=== PATIENT | female | born 1950 | race Two or more races ===

== ENCOUNTER 2017-12-04 13:11 | Observation (INO) | payer MEDICARE, OTHER ==
--- NOTE | 2017-12-04 15:08 | PDOC ---
History of Present Illness - History of Present Illness Initial Comments: Patient is a 67F, with PMHx of HTN, HLD, Hypothyroidism, Depression, CVA ( diagnosed in [place]), who presents to the ED for 3 days of slurred speech, tongue numbness, and worsening facial droop. Patients reports that she has not had her synthroid for the past 5 days. Denies any recent headache chest pain, sob, nausea, vomiting diarrhea, constipation, diarrhea, sore throat, or cough. 12/04/17 16:36 <Zo Huang - Last Filed: 12/04/17 16:36> - History of Present Illness Initial Comments: 12/04/17 16:11 12/04/17 16:20 <Gini Singh - Last Filed: 12/04/17 19:03> - General Chief Complaint: CVA/TIA Stated Complaint: FACIAL DROOP, SLURRED SPEECH, RX REFILL Time Seen by Provider: 12/04/17 13:47 Past History <Zo Huang - Last Filed: 12/04/17 16:36> - Past Medical History CVA: Yes (2010) COPD: No HTN: Yes - Suicide/Smoking/Psychosocial Hx Smoking History: Never smoked <Gini Singh - Last Filed: 12/04/17 19:03> - Past Medical History Allergies/Adverse Reactions: Allergies Allergy/AdvReac Type Severity Reaction Status Date / Time No Known Allergies Allergy Verified 12/04/17 13:21 Review of Systems - Review of Systems Comments:: GENERAL/CONSTITUTIONAL: No fever or chills. No weakness. HEAD, EYES, EARS, NOSE AND THROAT: No change in vision. No ear pain or discharge. No sore throat. GASTROINTESTINAL: No nausea, vomiting, diarrhea or constipation. GENITOURINARY: No dysuria, frequency, or change in urination. CARDIOVASCULAR: No chest pain or shortness of breath. RESPIRATORY: No cough, wheezing, or hemoptysis. MUSCULOSKELETAL: No joint or muscle swelling or pain. No neck or back pain. SKIN: No rash NEUROLOGIC: No headache, vertigo, loss of consciousness, +slurred speech, + facial droop, +tongue numbness. ENDOCRINE: No increased thirst. No abnormal weight change. HEMATOLOGIC/LYMPHATIC: No anemia, easy bleeding, or history of blood clots. ALLERGIC/IMMUNOLOGIC: No hives or skin allergy. <Zo Huang - Last Filed: 12/04/17 16:36> *Physical Exam - Vital Signs Last Vital Signs Temp Pulse Resp BP Pulse Ox 97.8 F 98 H 18 131/79 99 12/04/17 13:18 12/04/17 13:18 12/04/17 13:18 12/04/17 13:18 12/04/17 13:18 - Physical Exam Comments: Constitutional: Awake, alert, oriented. No acute distress. Head: Normocephalic. Atraumatic Eyes: PERRL. EOMI. Conjunctivae are not pale. ENT: Mucous membranes are moist and intact. Hoarse voice. 1 submental lymph node on left however posterior oropharynx is clear.Uvula midline. Neck: Supple. Full ROM. No lymphadenopathy. Cardiovascular: Regular rate. Regular rhythm. S1, S2 regular. Distal pulses are 2+ and symmetric. Pulmonary/Chest: No evidence of respiratory distress. Clear to auscultation bilaterally No wheezing, rales or rhonchi. Abdominal: Soft and non-distended. There is no tenderness. No rebound, guarding or rigidity. No organomegaly. No palpable masses. Good bowel sounds. Back: No CVA tenderness. Musculoskeletal: No edema. No cyanosis. No clubbing. Full range of motion in all extremities. Nocalf tenderness. Radial/pedal pulses are intact and 2+ bilaterally Skin: Skin is warm and dry. No petechiae. No purpura. Neurological: No focal neuro deficits. Alert and oriented to person, place, and time. Cranial nerves II-XII are grossly intact. Normal speech. Strength is grossly symmetric. No sensory deficits. Psychiatric: Good eye contact. Normal interaction, affect and behavior. <Zo Huang - Last Filed: 12/04/17 16:36> - Vital Signs Last Vital Signs Temp Pulse Resp BP Pulse Ox 97.8 F 98 H 18 131/79 99 12/04/17 13:18 12/04/17 13:18 12/04/17 13:18 12/04/17 13:18 12/04/17 13:18 <Gini Singh - Last Filed: 12/04/17 19:03> Heart Score/ECG Review - ECG Intrepretation Comment:: 12/04/17 16:27 sinus wong at 59, nl aix,s nl interval, t wave flattening diffusely, no acute st changes <Gini Singh - Last Filed: 12/04/17 19:03> ED Treatment Course - LABORATORY CBC & Chemistry Diagram: 12/04/17 15:10 12/04/17 15:10 - ADDITIONAL ORDERS Additional order review: Laboratory Results 12/04/17 12/04/17 15:10 15:10 PT with INR Cancelled INR Cancelled PTT (Actin FS) Cancelled Sodium Cancelled Potassium Cancelled Chloride Cancelled Carbon Dioxide Cancelled Anion Gap Cancelled BUN Cancelled Creatinine Cancelled Creat Clearance w eGFR Cancelled Random Glucose Cancelled Calcium Cancelled Magnesium Cancelled Total Bilirubin Cancelled AST Cancelled ALT Cancelled Alkaline Phosphatase Cancelled Creatine Kinase Cancelled Troponin I Cancelled Total Protein Cancelled Albumin Cancelled TSH Cancelled Free T4 Cancelled 12/04/17 15:10 RBC 4.53 MCV 95.7 MCHC 33.4 RDW 13.8 MPV 7.8 Neutrophils % 68.0 Lymphocytes % 23.8 Monocytes % 5.3 Eosinophils % 2.2 Basophils % 0.7 <Zo Huang - Last Filed: 12/04/17 16:36> - LABORATORY CBC & Chemistry Diagram: 12/04/17 15:10 12/04/17 16:50 - RADIOLOGY Radiology Studies Ordered: Category Date Time Status HEAD CT WITHOUT CONTRAST [CT] Stat CT Scan 12/04/17 15:03 Ordered CHEST X-RAY PORTABLE* [RAD] Stat Radiology 12/04/17 15:03 Ordered <Gini Singh - Last Filed: 12/04/17 19:03> Medical Decision Making - Medical Decision Making 12/04/17 16:20 67yo female with hx of CVA, depression, htn, hld, and hypothyroid -states out of her levothyroxine x 5 days - states slurred speech x 3 days along with a facial droop that has resolved since getting tot he ED -c/o tongue numbness -nothing focal on neuro -no cp/sob -no abd pain -will obtain head ct, labs -will need obs for poss cva vs tia -will need neuro eval will check thyroid function 12/04/17 17:38 Dr. Murillo admits to [facility] - covered by SYMPHONY old infarct on CT - rads recommends MRI consult placed to Dr. Cheney 12/04/17 18:38 labs reviewed tsh/free t4 pending call placed to [facility] for obs for further eval of tongue tingling and slurred speech 12/04/17 19:02 case discussed with Sol from [facility] who accepts pt to obs for TIA workup <Gini Singh - Last Filed: 12/04/17 19:03> *DC/Admit/Observation/Transfer <Zo Huang - Last Filed: 12/04/17 16:36> - Discharge Dispostion Decision to Admit order: Yes - Attestations Physician Attestion: 12/04/17 19:02 I, Dr. Gini Singh, DO, attest that this document has been prepared under my direction and personally reviewed by me in its entirety. I further attest, that it accurately reflects all work, treatment, procedures and medical decision -making performed by me. <Gini Singh - Last Filed: 12/04/17 19:03> Diagnosis at time of Disposition: Numbness of tongue, Slurred speech - Discharge Dispostion Condition at time of disposition: Fair - Referrals Referrals: Audi Murillo MD, MD [Primary Care Provider] - - Patient Instructions - Post Discharge Activity
[2017-12-04 15:26] LABS: BASO % 0.7 % (0-2.0); EOS % 2.2 % (0-4.5); HEMATOCRIT 43.3 % (32.4-45.2); HEMOGLOBIN 14.5 GM/dL (10.7-15.3); LYMPH % 23.8 % (8-40); MCHC 33.4 g/dl (32.0-36.0); MEAN CELL VOLUME 95.7 fl (80-96); MEAN PLT VOLUME 7.8 fl (7.5-11.1); MONO % 5.3 % (3.8-10.2); PLATELET COUNT 323 K/MM3 (134-434); RBC 4.53 M/mm3 (3.60-5.2); RDW 13.8 % (11.6-15.6)
[2017-12-04 17:18] LABS: URINE APPEARANCE SLCLOUDY; URINE BILIRUBIN NEGATIVE (<2.0 mg/dL); URINE BLOOD NEGATIVE (NEGATIVE); URINE COLOR DKYELLOW; URINE GLUCOSE (UA) NEGATIVE (NEGATIVE); URINE KETONE NEGATIVE (NEGATIVE); URINE LEUK ESTERASE 2+ (NEGATIVE); URINE NITRITE NEGATIVE (NEGATIVE); URINE PROTEIN NEGATIVE (NEGATIVE); URINE UROBILINOGEN NEGATIVE mg/dL (0.2-1.0)
[2017-12-04 17:19] LABS: EPI CELLS RARE /HPF (FEW); URINE BACTERIA RARE /hpf (NONE SEEN); URINE HYALINE CAST 1 /lpf; URINE MUCUS RARE
[2017-12-04 17:21] LABS: INR 1.02 (0.82-1.09); PROTHROMBIN TIME (PATIENT) 11.5 SEC (9.7-13.0)
[2017-12-04 18:24] LABS: ALBUMIN 4.1 g/dl (3.4-5.0); ANION GAP 7 (8-16); BILIRUBIN,TOTAL 0.7 mg/dL (0.2-1.0); BLOOD UREA NITROGEN 9 mg/dL (7-18); CHLORIDE 103 mmol/L (98-107); CO2 28 mmol/L (21-32); CREATININE 1.2 mg/dL (0.55-1.02); GLUCOSE,RANDOM 75 mg/dL (74-106); MAGNESIUM 2.5 mg/dL (1.8-2.4); POTASSIUM 4.2 mmol/L (3.5-5.1); SGOT/AST 92 U/L (15-37); SGPT/ALT 72 U/L (12-78); SODIUM 138 mmol/L (136-145); TOT PROT 7.8 g/dl (6.4-8.2)
[2017-12-04 18:42] LABS: ALK PHOS 83 U/L (45-117)
--- NOTE | 2017-12-04 19:43 | HP ---
CHIEF COMPLAINT: Facial Droop, Slurred Speech, Tongue Numbness PCP: Dr. Audi Murillo HISTORY OF PRESENT ILLNESS: This is a 67 y/o woman with a past medical history of HTN, HLD, CVA (2011, L- residual), Hypothyroidism, Depression. Who presents to the ED with her spouse with R-facial droop, slurred speech, tongue numbness x 3 days.The patient reports that her tongue starting getting numb,then her daughter noticed her facial droop, her noted the slurred speech. Patient's reports that the patient ran out of her Synthroid and could not get it refilled. The patient reports having similar symptoms with her last stroke. Patient denies dysphagia or blurred vision. Patient denies fever, chills, cough SOB, MOELLER, CP, AP , N/V/D, constipation, dysuria. ER course was notable for: (1) Head CT- no ICH (2) TSH 116, T4 0.16 (3) Troponin I < 0.02 Recent Travel: None PAST MEDICAL HISTORY: See HPI PAST SURGICAL HISTORY: Bladder Lift Social History: Smoking: Never Alcohol: None Drugs: None Lives with Spouse and Adult child Family History: Father: ID, Mother: Dementia, Allergies No Known Allergies Allergy (Verified 12/04/17 13:21) HOME MEDICATIONS: Home Medications Medication Instructions Recorded Atorvastatin Ca [Lipitor] 20 mg PO HS 12/04/17 Levothyroxine Sodium [Levoxyl] 125 mcg PO DAILY 12/04/17 Losartan Potassium 100 mg PO HS 12/04/17 Paroxetine HCl [Paxil] 20 mg PO HS 12/04/17 REVIEW OF SYSTEMS CONSTITUTIONAL: Absent: fever, chills, diaphoresis, generalized weakness, malaise, loss of appetite, weight change HEENT: Absent: rhinorrhea, nasal congestion, throat pain, throat swelling, difficulty swallowing, mouth swelling, ear pain, eye pain, visual changes CARDIOVASCULAR: Absent: chest pain, syncope, palpitations, irregular heart rate, lightheadedness , peripheral edema RESPIRATORY: Absent: cough, shortness of breath, dyspnea with exertion, orthopnea, wheezing, stridor, hemoptysis GASTROINTESTINAL: Absent: abdominal pain, abdominal distension, nausea, vomiting, diarrhea, constipation, melena, hematochezia GENITOURINARY: Absent: dysuria, frequency, urgency, hesitancy, hematuria, flank pain, genital pain MUSCULOSKELETAL: Absent: myalgia, arthralgia, joint swelling, back pain, neck pain SKIN: Absent: rash, itching, pallor HEMATOLOGIC/IMMUNOLOGIC: Absent: easy bleeding, easy bruising, lymphadenopathy, frequent infections ENDOCRINE: Absent: unexplained weight gain, unexplained weight loss, heat intolerance, cold intolerance NEUROLOGIC: paresthesias, slurred speech, R-facial droop Absent: headache, focal weakness, dizziness, unsteady gait, seizure, mental status changes, bladder or bowel incontinence PSYCHIATRIC: Absent: anxiety, depression, suicidal or homicidal ideation, hallucinations. PHYSICAL EXAMINATION Vital Signs - 24 hr 12/04/17 13:18 Temperature 97.8 F Pulse Rate 98 H Respiratory 18 Rate Blood Pressure 131/79 O2 Sat by Pulse 99 Oximetry (%) GENERAL: Awake, alert, and fully oriented, in no acute distress. HEAD: Normal with no signs of trauma. EYES: Pupils equal, round and reactive to light, extraocular movements intact, sclera anicteric, conjunctiva clear. No lid lag. EARS, NOSE, THROAT: Ears normal, nares patent, oropharynx clear without exudates. Dry mucous membranes. NECK: Normal range of motion, supple with R- cervical lymphadenopathy, JVD, or masses. LUNGS: Breath sounds equal, clear to auscultation bilaterally. No wheezes, and no crackles. No accessory muscle use. HEART: Regular rate and rhythm, normal S1 and S2 without murmur, rub or gallop. ABDOMEN: Soft, nontender, not distended, normoactive bowel sounds, no guarding, no rebound, no masses. No hepatomegaly or splenomegaly. MUSCULOSKELETAL: Normal range of motion at all joints. No bony deformities or tenderness. No CVA tenderness. UPPER EXTREMITIES: 2+ pulses, warm, well-perfused. No cyanosis. No clubbing. No peripheral edema. LOWER EXTREMITIES: 2+ pulses, warm, well-perfused. No calf tenderness. No peripheral edema. NEUROLOGICAL: Cranial nerves II-XII intact. Normal speech. Gait not observed. PSYCHIATRIC: Cooperative. Good eye contact. Appropriate mood and affect. SKIN: Warm, dry, normal turgor, no rashes or lesions noted, normal capillary refill. intradermal transmitter to R- buttock Laboratory Results - last 24 hr 12/04/17 12/04/17 12/04/17 15:10 15:10 15:10 WBC 6.0 RBC 4.53 Hgb 14.5 Hct 43.3 MCV 95.7 MCH 32.0 MCHC 33.4 RDW 13.8 Plt Count 323 MPV 7.8 Absolute Neuts (auto) 4.1 Neutrophils % 68.0 Lymphocytes % 23.8 Monocytes % 5.3 Eosinophils % 2.2 Basophils % 0.7 Nucleated RBC % 0 PT with INR Cancelled INR Cancelled PTT (Actin FS) Cancelled Sodium Cancelled Potassium Cancelled Chloride Cancelled Carbon Dioxide Cancelled Anion Gap Cancelled BUN Cancelled Creatinine Cancelled Creat Clearance w eGFR Cancelled Random Glucose Cancelled Calcium Cancelled Magnesium Cancelled Total Bilirubin Cancelled AST Cancelled ALT Cancelled Alkaline Phosphatase Cancelled Creatine Kinase Cancelled Creatine Kinase Index CK-MB (CK-2) Troponin I Cancelled Total Protein Cancelled Albumin Cancelled TSH Cancelled Free T4 Cancelled Urine Color Urine Appearance Urine pH Ur Specific [place] Urine Protein Urine Glucose (UA) Urine Ketones Urine Blood Urine Nitrite Urine Bilirubin Urine Urobilinogen Ur Leukocyte Esterase Urine WBC (Auto) Urine RBC (Auto) Ur Epithelial Cells Urine Bacteria Hyaline Casts Urine Mucus 12/04/17 12/04/17 12/04/17 16:50 16:50 16:50 WBC RBC Hgb Hct MCV MCH MCHC RDW Plt Count MPV Absolute Neuts (auto) Neutrophils % Lymphocytes % Monocytes % Eosinophils % Basophils % Nucleated RBC % PT with INR INR PTT (Actin FS) Sodium 138 Potassium 4.2 Chloride 103 Carbon Dioxide 28 Anion Gap 7 L BUN 9 Creatinine 1.2 H Creat Clearance w eGFR 45.09 Random Glucose 75 Calcium 10.0 Magnesium 2.5 H Total Bilirubin 0.7 AST 92 H ALT 72 Alkaline Phosphatase 83 Creatine Kinase 2099 H Creatine Kinase Index 0.6 CK-MB (CK-2) 14.63 H Troponin I < 0.02 Total Protein 7.8 Albumin 4.1 TSH Free T4 0.16 L Urine Color Dkyellow Urine Appearance Slcloudy Urine pH 6.0 Ur Specific [place] 1.009 Urine Protein Negative Urine Glucose (UA) Negative Urine Ketones Negative Urine Blood Negative Urine Nitrite Negative Urine Bilirubin Negative Urine Urobilinogen Negative Ur Leukocyte Esterase 2+ H Urine WBC (Auto) 7 Urine RBC (Auto) None Ur Epithelial Cells Rare Urine Bacteria Rare Hyaline Casts 1 Urine Mucus Rare 12/04/17 12/04/17 16:50 16:50 WBC RBC Hgb Hct MCV MCH MCHC RDW Plt Count MPV Absolute Neuts (auto) Neutrophils % Lymphocytes % Monocytes % Eosinophils % Basophils % Nucleated RBC % PT with INR 11.50 INR 1.02 PTT (Actin FS) 33.4 Sodium Potassium Chloride Carbon Dioxide Anion Gap BUN Creatinine Creat Clearance w eGFR Random Glucose Calcium Magnesium Total Bilirubin AST ALT Alkaline Phosphatase Creatine Kinase Creatine Kinase Index CK-MB (CK-2) Troponin I Total Protein Albumin TSH Free T4 Urine Color Urine Appearance Urine pH Ur Specific [place] Urine Protein Urine Glucose (UA) Urine Ketones Urine Blood Urine Nitrite Urine Bilirubin Urine Urobilinogen Ur Leukocyte Esterase Urine WBC (Auto) Urine RBC (Auto) Ur Epithelial Cells Urine Bacteria Hyaline Casts Urine Mucus ASSESSMENT/PLAN: This is a 67 y/o woman PMHx CVA (2010, L- residual) HTN, HLD, Hypothyroidism, Depression. Placed on Tele Observation CVA/TIA. Plan: 1. Admit to Tele Observation for CVA/TIA - Cardiac Monitoring - NIHSS 1 - Brain CT- neg ICH - MRI Brain-pending - Appreciate Neurology consult - Carotid Doppler in am - Echo - Lipid Panel - Swallow eval - Repeat CBC, BMP in am - Fall Precautions - Neuro checks 2. Hypothyroidism - sub clinical secondary to Drug Holiday - Levothyroxine now, then increase to 150mcg and monitor closely - Consider Endocrinology consult - Monitor vitals 3. Hypertension - stable - Continue home med - Monitor renal function 4. Hyperlipidemia - Continue Atorvastatin - Monitor LFTs 5. Depression - Continue Paxil 6. FEN - Replete lytes prn - NPO, until cleared by Neuro or Swallow Eval 7. DVT ppx - OOB - SCDs - Consider ACs if LOS > 48 hrs Code Status: Full Code Dispo: Tele Observation Problem List - Problem (1) CVA (cerebral vascular accident) Code(s): I63.9 - CEREBRAL INFARCTION, UNSPECIFIED (2) Numbness of tongue Code(s): R20.0 - ANESTHESIA OF SKIN (3) Slurred speech Code(s): R47.81 - SLURRED SPEECH (4) Hypothyroidism Code(s): E03.9 - HYPOTHYROIDISM, UNSPECIFIED (5) HTN (hypertension) Code(s): I10 - ESSENTIAL (PRIMARY) HYPERTENSION (6) HLD (hyperlipidemia) Code(s): E78.5 - HYPERLIPIDEMIA, UNSPECIFIED Visit type - Emergency Visit Emergency Visit: Yes ED Registration Date: 12/04/17 Care time: The patient presented to the Emergency Department on the above date and was hospitalized for further evaluation of their emergent condition. - New Patient This patient is new to me today: Yes Date on this admission: 12/04/17 - Critical Care Critical Care patient: No Hospitalist Screening - Colonoscopy Questionnaire Colonoscopy Questionnaire: Colonoscopy Questionnaire - Patient: 50 - 75 years old and never had a screening colonoscopy: No History of colon or rectal polyps, or CA: No History of IBD, Crohn's disease or UC: No History of abdominal radiation therapy as a child: No - Relative: 1 with colon or rectal CA, or polyps at age 60 or younger: No Colon or rectal CA diagnosed at age 45 or younger: No Multiple relatives with colon or rectal CA: No - Outcome: Screening Result: Negative Screen
[2017-12-04] MEDS ORDERED: LEVOTHYROXINE NA 125 MCG TABLET (FP) PO ONE (21:29)
[2017-12-04] MEDS ORDERED: LEVOTHYROXINE NA 25 MCG TABLET (FP) ONE (21:42)
[2017-12-04] MEDS ORDERED: ATORVASTATIN CA 20 MG TABLET (FP) PO SCH (22:00)
[2017-12-04] MEDS ORDERED: PARoxetine HCL 10 MG TABLET (FP) PO SCH (22:45)
[2017-12-04] MEDS ORDERED: LOSARTAN POTASSIUM 50 MG TABLET (FP) PO SCH (22:45)
[2017-12-04 23:46] VITALS: BMI 23.6
[2017-12-05] MEDS ORDERED: LEVOTHYROXINE NA 125 MCG TABLET (FP) PO SCH (07:00)
[2017-12-05 07:36] LABS: BASO % 0.9 % (0-2.0); EOS % 3.4 % (0-4.5); HEMATOCRIT 43.5 % (32.4-45.2); HEMOGLOBIN 14.9 GM/dL (10.7-15.3); LYMPH % 22.9 % (8-40); MCH 32.2 pg (25.7-33.7); MCHC 34.2 g/dl (32.0-36.0); MEAN CELL VOLUME 94.3 fl (80-96); MEAN PLT VOLUME 7.4 fl (7.5-11.1); MONO % 5.2 % (3.8-10.2); NEUT % 67.6 % (42.8-82.8); PLATELET COUNT 289 K/MM3 (134-434); RBC 4.61 M/mm3 (3.60-5.2); RDW 13.6 % (11.6-15.6); WHITE BLOOD COUNT 4.5 K/mm3 (4.0-10.0)
--- NOTE | 2017-12-05 07:46 | PN ---
Progress Note, Physician Chief Complaint: AMS Hypothyroid History of Present Illness: NAD, on Tele CT head negative Awaiting MRI and carotid results to be seen by Neurology - Current Medication List Current Medications: Active Medications Atorvastatin Calcium (Lipitor -) 20 mg PO HS [place] Last Admin: 12/04/17 23:12 Dose: 20 mg Levothyroxine Sodium (Synthroid -) 150 mcg PO DAILY@0700 [place] Losartan Potassium (Cozaar -) 100 mg PO HS [place] Paroxetine HCl (Paxil -) 20 mg PO HS [place] - Objective Vital Signs: Vital Signs Temperature 98.1 F 12/05/17 06:00 Pulse Rate 65 12/05/17 06:00 Respiratory Rate 20 12/05/17 06:00 Blood Pressure 125/88 12/05/17 06:00 O2 Sat by Pulse Oximetry (%) 99 12/04/17 13:18 Constitutional: Yes: Well Nourished, No Distress, Calm Cardiovascular: Yes: Regular Rate and Rhythm Respiratory: Yes: Regular Gastrointestinal: Yes: Normal Bowel Sounds, Soft Labs: CBC, BMP 12/05/17 06:35 INR, PTT INR 1.02 (0.82-1.09) 12/04/17 16:50 Problem List - Problems (1) Hypothyroidism Assessment/Plan: missed 5 days of medication because couldn't get refill from her PCP besides multiple calls to their office -Levothyroxine restarted -repeat thyroid profile in 6 weeks -Endocrinology consult Code(s): E03.9 - HYPOTHYROIDISM, UNSPECIFIED (2) Slurred speech Assessment/Plan: -CT head negative -MRI, Carotid U/S pending -Seen by Neurology -Self ambulatory Code(s): R47.81 - SLURRED SPEECH Assessment/Plan see problem list d/c home if MRI and Carotid u/s negative
[2017-12-05 08:04] LABS: ANION GAP 5 (8-16); BLOOD UREA NITROGEN 12 mg/dL (7-18); CALCIUM 9.2 mg/dL (8.5-10.1); CHLORIDE 103 mmol/L (98-107); CO2 28 mmol/L (21-32); GLUCOSE,RANDOM 88 mg/dL (74-106); POTASSIUM 4.2 mmol/L (3.5-5.1); SODIUM 136 mmol/L (136-145)
--- NOTE | 2017-12-05 11:51 | EKG ---
Test Reason : Blood Pressure : / mmHG Vent. Rate : 059 BPM Atrial Rate : 059 BPM P-R Int : 194 ms QRS Dur : 072 ms QT Int : 416 ms P-R-T Axes : 047 -04 025 degrees QTc Int : 411 ms SINUS BRADYCARDIA WITH SINUS ARRHYTHMIA NONSPECIFIC T WAVE ABNORMALITY ABNORMAL ECG NO PREVIOUS ECGS AVAILABLE Confirmed by MD Nik, Dony ([id number]) on 12/05/2017 11:51:00 AM Referred By: Confirmed By:Dony Zaragoza MD
--- NOTE | 2017-12-05 12:06 | CON.NEURO ---
Consult - Past Medical History ...: No - Alcohol/Substance Use Hx Alcohol Use: No (ocassional etoh) - Smoking History Smoking history: Never smoked Have you smoked in the past 12 months: No Home Medications - Allergies Allergies/Adverse Reactions: Allergies Allergy/AdvReac Type Severity Reaction Status Date / Time No Known Allergies Allergy Verified 12/04/17 13:21 - Home Medications Home Medications: Ambulatory Orders Atorvastatin Ca [Lipitor] 20 mg PO HS 12/04/17 Levothyroxine Sodium [Levoxyl] 125 mcg PO DAILY 12/04/17 Losartan Potassium 100 mg PO HS 12/04/17 Paroxetine HCl [Paxil] 20 mg PO HS 12/04/17 Physical Exam-Neuro Vital Signs: Vital Signs Temperature 98.1 F 12/05/17 06:00 Pulse Rate 65 12/05/17 06:00 Respiratory Rate 20 12/05/17 06:00 Blood Pressure 125/88 12/05/17 06:00 O2 Sat by Pulse Oximetry (%) 99 12/04/17 13:18 Labs: CBC, BMP 12/05/17 06:35 12/05/17 06:35 INR, PTT INR 1.02 (0.82-1.09) 12/04/17 16:50 Assessment/Plan cc Slurring of speech , tongue numbness , and face droopiness and symptoms resolved HPI 67 year old female history of stroke ( HTN,HLD,STROKE in left sided hemiparesis), Hypothyroidism, depression. Patient has right facial droopiness, slurring of speech and tongue numbness. She indicates these symptoms to missing medication. She feels her symptoms are resolved. and she feels some uncomfortable in her neck. She has mri of brain and carotid ultrasound done and waiting for results PMH as above SxH- Bladder lift NKDA JESE DODD reviewed in chart Family History: Father: [place], Mother: Dementia, Allergies No Known Allergies Allergy (Verified 12/04/17 13:21) HOME MEDICATIONS: Home Medications Medication Instructions Recorded Atorvastatin Ca [Lipitor] 20 mg PO HS 12/04/17 Levothyroxine Sodium [Levoxyl] 125 mcg PO DAILY 12/04/17 Losartan Potassium 100 mg PO HS 12/04/17 Paroxetine HCl [Paxil] 20 mg PO HS 12/04/17 Neurological Examination Alert oriented x 3, able to follow command no face asymmetry, eomi, pupils is reactive Moving all ext sensation is normal gait not tested CT head is normal , no acut findings MRI of brain - official report is pending and I do not see any acute stroke carotid ultrasound is pending Assessment- Most likely TIA, symptoms resolved Plan- increase simvastatin to 40 mg once a day and add aspirin - Speech consult - No need for PT as there is no motor weakness - Follow up on MRI AND Carotid ultrasound results Once above test is normal, she can be discharged - She is npo, as she passed swallow, suggest she can be started on diet Thanking you so much Gerry Cheney MD
[2017-12-05] MEDS: ASPIRIN 81 MG CHEWABLE TABLETS PO SCH (13:19)
[2017-12-05] MEDS ORDERED: ALPRAZolam 0.25 MG TABLET PO ONE (20:06)
[2017-12-05] MEDS ORDERED: ACETAMINOPHEN 325 MG TABLET (FP) PO PRN (20:07)
[2017-12-05] MEDS ORDERED: ACETAMINOPHEN 325 MG TABLET (FP) ONE (20:10)
[2017-12-05] MEDS: HEPARIN NA (PORCINE) 5,000 UNITS/ML 1ML VIAL SQ SCH (21:07)
[2017-12-05] MEDS ORDERED: ATORVASTATIN CA 40 MG TABLET (FP) PO SCH (22:00)
[2017-12-05] MEDS ORDERED: PARoxetine HCL 10 MG TABLET (FP) PO SCH (22:00)
[2017-12-05] MEDS ORDERED: LOSARTAN POTASSIUM 50 MG TABLET (FP) PO SCH (22:00)
--- NOTE | 2017-12-05 23:05 | CONSULT ---
Consult Consult Specialty:: ENDOCRINE Referred by:: OSMANY [place] NP Reason for Consultation:: HYPOTHYROIDISM - History of Present Illness Chief Complaint: WEAK,SLURRED SPEECH History of Present Illness: 67 y/o woman with a past medical history of HTN, HLD, CVA (2011, L- residual), Hypothyroidism, Depression. Who presents to the ED with her spouse with R- facial droop, slurred speech, tongue numbness x 3 days.The patient reports that her tongue starting getting numb,then her daughter noticed her facial droop, her noted the slurred speech. Patient's reports that the patient ran out of her Synthroid and could not get it refilled. The patient HAD similar symptoms with her last stroke. Patient denies dysphagia or blurred vision. She denies fever, chills, cough SOB, MOELLER, CP, AP, N/V/D, constipation, dysuria. - History Source History Provided By: Patient - Past Medical History ...: No - Alcohol/Substance Use Hx Alcohol Use: No (ocassional etoh) - Smoking History Smoking history: Never smoked Have you smoked in the past 12 months: No Home Medications - Allergies Allergies/Adverse Reactions: Allergies Allergy/AdvReac Type Severity Reaction Status Date / Time No Known Allergies Allergy Verified 12/04/17 13:21 - Home Medications Home Medications: Ambulatory Orders Atorvastatin Ca [Lipitor] 20 mg PO HS 12/04/17 Levothyroxine Sodium [Levoxyl] 125 mcg PO DAILY 12/04/17 Losartan Potassium 100 mg PO HS 12/04/17 Paroxetine HCl [Paxil] 20 mg PO HS 12/04/17 Review of Systems - Review of Systems Constitutional: reports: Lethargy, Weakness Eyes: reports: No Symptoms HENT: reports: No Symptoms Neck: reports: No Symptoms Cardiovascular: reports: Shortness of Breath Respiratory: reports: SOB on Exertion Gastrointestinal: reports: Constipation Genitourinary: reports: No Symptoms Breasts: reports: No Symptoms Reported Musculoskeletal: reports: Muscle Cramps, Muscle Weakness Integumentary: reports: No Symptoms Neurological: reports: Weakness Endocrine: reports: Unexplained Weight Gain Physical Exam Vital Signs: Vital Signs Temperature 97.5 F L 12/05/17 21:00 Pulse Rate 67 12/05/17 21:00 Respiratory Rate 20 12/05/17 22:00 Blood Pressure 116/84 12/05/17 21:00 O2 Sat by Pulse Oximetry (%) 99 12/04/17 13:18 Constitutional: Yes: Calm Eyes: Yes: EOM Intact HENT: Yes: Normocephalic Neck: Yes: Thyromegaly Cardiovascular: Yes: Regular Rate and Rhythm Respiratory: Yes: CTA Bilaterally Gastrointestinal: Yes: Normal Bowel Sounds ...Rectal Exam: Yes: Deferred Renal/: Yes: WNL Musculoskeletal: Yes: WNL Extremities: Yes: WNL Neurological: Yes: Alert, Oriented Labs: CBC, BMP 12/05/17 06:35 12/05/17 06:35 Problem List - Problems (1) CVA (cerebral vascular accident) Code(s): I63.9 - CEREBRAL INFARCTION, UNSPECIFIED (2) HTN (hypertension) Code(s): I10 - ESSENTIAL (PRIMARY) HYPERTENSION (3) Hypothyroidism Code(s): E03.9 - HYPOTHYROIDISM, UNSPECIFIED Qualifiers: 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 Qualified Code(s): E03.8 - Other specified hypothyroidism; E06.3 - Autoimmune thyroiditis (4) Numbness of tongue Code(s): R20.0 - ANESTHESIA OF SKIN Assessment/Plan Current Active Problems CVA (cerebral vascular accident) (Acute) HLD (hyperlipidemia) (Acute) HTN (hypertension) (Acute) Hypothyroidism (Acute) Numbness of tongue (Acute) Slurred speech (Acute) Abnormal Lab Results 12/05/17 12/05/17 06:35 06:35 MPV 7.4 L Anion Gap 5 L Laboratory Results - last 24 hr 12/05/17 12/05/17 06:35 06:35 WBC 4.5 RBC 4.61 Hgb 14.9 Hct 43.5 MCV 94.3 MCH 32.2 MCHC 34.2 RDW 13.6 Plt Count 289 MPV 7.4 L Absolute Neuts (auto) 3.0 Neutrophils % 67.6 Lymphocytes % 22.9 Monocytes % 5.2 Eosinophils % 3.4 Basophils % 0.9 Nucleated RBC % 0 Sodium 136 Potassium 4.2 Chloride 103 Carbon Dioxide 28 Anion Gap 5 L BUN 12 Creatinine 1.0 Random Glucose 88 Calcium 9.2 Laboratory Tests 12/04/17 12/05/17 16:50 06:35 Sodium 136 Potassium 4.2 Chloride 103 Carbon Dioxide 28 Anion Gap 5 L BUN 12 Creatinine 1.0 Random Glucose 88 TSH 116.00 H Free T4 0.16 L plan: given normal gi absorption continue synthroid 150mcg daily will need outpatient tsh free t4
[2017-12-06 05:59] VITALS: TEMP 98.1
[2017-12-06] MEDS ORDERED: LEVOTHYROXINE NA 75 MCG TABLET (FP) PO SCH (07:00)
[2017-12-06] MEDS: HEPARIN NA (PORCINE) 5,000 UNITS/ML 1ML VIAL SQ SCH (09:47)
[2017-12-06] MEDS: ASPIRIN 81 MG CHEWABLE TABLETS PO SCH (09:47)
--- NOTE | 2017-12-06 10:02 | PN ---
Progress Note (short form) - Note Progress Note: 67 year old female history of stroke ( HTN,HLD,STROKE in left sided hemiparesis) , Hypothyroidism, depression. Patient has right facial droopiness, slurring of speech and tongue numbness. She indicates these symptoms to missing medication. She feels her symptoms are resolved. and she feels some uncomfortable in her neck. except mild right numbness , symptoms has resolved. Alert oriented x 3, able to follow command no face asymmetry, eomi, pupils is reactive Moving all ext sensation is normal gait not tested CT head is normal , no acut findings MRI of brain - no acute stroke, there is white matter disease carotid ultrasound no setnosis Assessment- Most likely TIA, symptoms resolved Plan-continue 40 mg qd and aspirin - Speech consult - No need for PT as there is no motor weakness Once above test is normal, she can be discharged from neuro point of view Thanking you so much Gerry Cheney MD
--- NOTE | 2017-12-06 11:30 | CONSULT ---
Admitting History and Physical - Primary Care Physician PCP: Sherita Pollock - Admission History of Present Illness: Patient able to ambulate to bed unassisted, gait steady. Patient admitted with c /o of slurred speech, numbness, and facial droop. Patient A&Ox3, extremities b/ l strong and equal, PERRLA, no facial droop noted, speech clear. Patient states she still has some numbness/tingling around mouth. Stroke dysphagia screening done at bedside and passed. Selected Entries 12/05/17 12/05/17 12/05/17 02:00 06:00 09:05 Breakfast NPO Temperature 97.9 F 98.1 F 12/05/17 12/05/17 12/05/17 10:00 14:00 17:42 Breakfast Temperature 98.3 F 98 F 98.6 F 12/05/17 12/06/17 12/06/17 21:00 02:00 05:59 Breakfast Temperature 97.5 F L 97.7 F 98.1 F 12/06/17 08:35 Breakfast 100% Temperature Laboratory Tests 12/05/17 06:[address] head is normal , no acut findings MRI of brain - no acute stroke, there is white matter disease carotid ultrasound no setnosis Neuro Assessment- Most likely TIA, symptoms resolved History Source: Patient, Medical Record Limitations to Obtaining History: No Limitations - Past Medical History ...: No - Smoking History Smoking history: Never smoked Have you smoked in the past 12 months: No - Alcohol/Substance Use Hx Alcohol Use: No (ocassional etoh) History - Admission Reason For Visit: NUMBNESS OF TONGUE, SLURRED SPEECH - Diagnostics X-ray: Report Reviewed CT Scan: Report Reviewed MRI: Report Reviewed - General Mental Status: Alert and Oriented, Awake and Alert, Able to Follow Commands Attention: Intact Ability to Follow Directions: Excellent - Hearing Hearing: Functional Hearing: Normal Speech Evaluation - Communication Primary Language: GEORGIAN Communication: Yes: Within Normal Limits Oral Expression Ability: Yes: No Impairment - Speech Production Able to Make Needs Known: Yes: WNL Intelligibility: Yes: WNL - Speech Characteristics Voice Loudness: Normal Voice Pitch: Yes: Normal Voice Phonatory-based Quality: Yes: Normal Speech Pattern: Normal Speech Clarity: < 100% Nasal Resonance: Normal Articulation: Yes: Precise Rate of Speech: Intact - Language/Auditory Comprehension Follows: Yes: 2 Stage Simple Commands Observation: Able to respond to yes/no queries: Yes, Yes/No Confusion: No, Comprehends Conversational Speech: Yes - Language/Verbal Expression Able to Respond to Simple Queries: Yes: WNL Able to Communicate Wants and Needs: Yes: WNL Functional Communication Status: Yes: WNL - Memory/Perception detention Memory: Yes: WNL Short Term Memory: Yes: WNL - Swallow Evaluation/Bedside Assessment Current Nutritional Intake: Regular, Thin Liquids Oral Secretions: Yes: WFL Dentition: Yes: Adequate Facial Symmetry at Rest: Symmetrical Facial Symmetry on Retraction: Symmetrical Facial Movement: Controlled Sensation: Normal Against Resistance Opening: Normal Against Resistance Closing: Normal Pucker Lips: Normal Smile: Normal Lingual Movement: Normal, Symmetric Lingual Speed of Movement: Normal Lingual Movement Strgth Against Opposition: Normal Lingual Movement Characteristics: Normal Velopharyngeal Movement: Normal Laryngeal Elevation: WFL Laryngeal Movement: Able to Palpate Rate of Intake: WFL Bolus Size: WFL Labial Seal: WFL Chewing: WFL Oral Prep Time: WFL A-P Transit: WFL Pocketing: None Timing of Swallow: WFL Coughing/Throat Clear: No Change in Voice: No Recommendations - Speech Evaluation, Impression/Plan Impression: Speech, language, cognition, swallowing intact - Dysphagia Impressions/Plan Swallowing Skills: WFL Dysphagia Impressions: No Impairment *Silent aspiration: cannot be R/O at bedside - Recommendations Diet Consistency: Regular Medication Administration: Whole with water Liquids: Thin Liquids
[2017-12-06 14:05] VITALS: BP 124/80; PULSE 79
--- NOTE | 2017-12-06 14:36 | DS ---
Physical Examination Vital Signs: Vital Signs Temperature 98.1 F 12/06/17 13:05 Pulse Rate 79 12/06/17 13:05 Respiratory Rate 20 12/06/17 13:05 Blood Pressure 124/80 12/06/17 13:05 O2 Sat by Pulse Oximetry (%) 99 12/04/17 13:18 Findings/Remarks: PATIENT AWAKE ALERT FEELS TIRED AWAITING URINE CULTURE CAN START CEFTRIAXONE IV X 1 NOW AFTER CULTURE TAKEN THEN F/U OUTPATIENT FOR FURTHER THERAPY IF NEEDED Constitutional: Yes: Mild Distress Eyes: Yes: WNL HENT: Yes: WNL Neck: Yes: WNL Cardiovascular: Yes: WNL Respiratory: Yes: WNL Gastrointestinal: Yes: WNL Renal/: Yes: WNL Musculoskeletal: Yes: WNL Extremities: Yes: WNL Edema: No Peripheral Pulses WNL: Yes Integumentary: Yes: WNL Wound/Incision: Yes: Clean/Dry Neurological: Yes: WNL ...Motor Strength: WNL Psychiatric: Yes: WNL Labs: CBC, BMP 12/05/17 06:35 12/05/17 06:35 Discharge Summary Reason For Visit: NUMBNESS OF TONGUE, SLURRED SPEECH Current Active Problems CVA (cerebral vascular accident) (Acute) HLD (hyperlipidemia) (Acute) HTN (hypertension) (Acute) Hypothyroidism (Acute) Numbness of tongue (Acute) Slurred speech (Acute) Procedures: Principal: MRI BRAIN Hospital Course: LABS, CULTURES DONE, PATIENT WITH LETHARGY FACIAL DROOP, RULE OUT CVA, MRI BRAIN NO ACUTE CHANGES FOLLOW UP WITH PMD IN 1-2 DAYS Condition: Fair - Instructions Diet, Activity, Other Instructions: LOW SODIUM SEE YOUR PRIMARY DOCTOR IN 1-2 DAYS FOLLOW UP URINE CULTURES Referrals: Audi Murillo MD, MD [Primary Care Provider] - Disposition: VNS/HOME HEALTH CARE - Home Medications Comprehensive Discharge Medication List: Ambulatory Orders Atorvastatin Ca [Lipitor] 20 mg PO HS 12/04/17 Levothyroxine Sodium [Levoxyl] 125 mcg PO DAILY 12/04/17 Losartan Potassium 100 mg PO HS 12/04/17 Paroxetine HCl [Paxil] 20 mg PO HS 12/04/17
[2017-12-06] MEDS ORDERED: CEFTRIAXONE 2 GM in DEXTROSE 5%-WATER - 100 ML IVPB ONE (15:30)
[2017-12-06] MEDS ORDERED: DEXTROSE 5%-WATER 100 ML IVPB ONE (15:47)
[2017-12-06] MEDS: CEFTRIAXONE 2 GM in DEXTROSE 5%-WATER 100 ML IVPB ONE ×3 (16:19→16:34)
== END 2017-12-06 18:04 | disposition home health service (06) ==
LOC: JER 13:11 → JERBED 19:03 → INTOOBSV 19:03 → J4S 22:11
PROVIDERS: ADMIT Family Medicine; ATTEND Family Medicine
PROC: 3E03329 Introduction of Other Anti-infective into Peripheral Vein, Percutaneous Approach (ICD-10-PCS; principal; 2017-12-04)
PROC: 3E013GC Introduction of Other Therapeutic Substance into Subcutaneous Tissue, Percutaneous Approach (ICD-10-PCS; 2017-12-04)
DX: I63.9 Cerebral infarction, unspecified (principal); R47.81 Slurred speech; K14.9 Disease of tongue, unspecified; I10 Essential (primary) hypertension; E78.5 Hyperlipidemia, unspecified; E03.9 Hypothyroidism, unspecified; F32.9 Major depressive disorder, single episode, unspecified
CPT/HCPCS: 36415; 70450-TC; 70551-TC; 71045-TC-FY; 80048; 80053; 81003; 81015; 82550; 82553; 83735; 84439; 84443; 84484; 85025; 85610; 85730; 87086; 93005; 93010; 93306-TC; 93880-TC; 96365; 96372; 99285-25; G0378; J1644

== ENCOUNTER 2018-03-10 11:34 | Day surgery (SDC) | payer MEDICARE, OTHER ==
[2018-03-09 14:46] VITALS: BMI 21.2
--- NOTE | 2018-03-10 12:54 | PROC ---
Endoscopy Procedure Endoscopy procedure completed. Please see scanned procedure report.
[2018-03-10 14:07] VITALS: TEMP 98
[2018-03-10 14:55] VITALS: BP 146/82; PULSE 75
--- NOTE | 2018-03-14 17:20 | PATH ---
Surgical Pathology Report Patient Name: MAHAMED ZIMMERMAN [facility]. Rec. #: [id number] /Age/Gender: 1950 (Age: 67) / F Account: [id number] Location: [facility] [place]-ENDOSCOPY Taken: 03/10/2018 Received: 03/11/2018 Reported: 03/14/2018 Physicians: Matthias Burgos M.D. Specimen(s) Received A: BX 2ND PORTION DUODENUM B: BX ANTRUM AND BODY C: BX DISTAL ESOPHAGUS Clinical History Abnormal weight loss Postoperative diagnosis: Gastritis, esophagitis Final Diagnosis A. SECOND PORTION DUODENUM, BIOPSY: DUODENAL MUCOSA WITH NO DIAGNOSTIC ABNORMALITIES. NO HISTOLOGIC EVIDENCE OF CELIAC DISEASE. B. ANTRUM AND BODY, BIOPSY: GASTRIC MUCOSA WITH REACTIVE GASTROPATHY. IMMUNOSTAIN IS NEGATIVE FOR H. PYLORI ORGANISMS. C. DISTAL ESOPHAGUS, BIOPSY: GASTROESOPHAGEAL JUNCTIONAL MUCOSA WITH REFLUX ESOPHAGITIS. NEGATIVE FOR INTESTINAL METAPLASIA. Electronically Signed Dee Madden M.D. Gross Description A. Received in formalin, labeled "biopsy second portion of duodenum" are 2 mullins, irregular portions of soft tissue averaging 0.3 cm. in greatest dimension. The specimens are submitted in toto in one cassette. B. Received in formalin, labeled "biopsy antrum and body" are 2 mullins, irregular portions of soft tissue measuring 0.3 and 0.5 cm. in greatest dimension. The specimens are submitted in toto in one cassette. C. Received in formalin, labeled with just the patient's name and indicated on the requisition to be a distal esophagus biopsy, is a mullins, irregular portion of soft tissue measuring 0.5 cm. in greatest dimension. The specimen is submitted in toto in one cassette. 03/11/201803/11/2018
== END 2018-03-10 15:07 | disposition home or self-care (01) ==
LOC: JASU-ENDO 11:34
PROVIDERS: ATTEND Internal Medicine Gastroenterology
PROC: 0DB68ZX Excision of Stomach, Via Natural or Artificial Opening Endoscopic, Diagnostic (ICD-10-PCS; 2018-03-10)
PROC: 0DJD8ZZ Inspection of Lower Intestinal Tract, Via Natural or Artificial Opening Endoscopic (ICD-10-PCS; 2018-03-10)
PROC: 0DB38ZX Excision of Lower Esophagus, Via Natural or Artificial Opening Endoscopic, Diagnostic (ICD-10-PCS; principal; 2018-03-10 11:45)
DX: K57.30 Diverticulosis of large intestine without perforation or abscess without bleeding (principal); K64.8 Other hemorrhoids; K20.9 Esophagitis, unspecified; K29.70 Gastritis, unspecified, without bleeding
CPT/HCPCS: 88305-TC; 88342-TC